=== PATIENT | male | born 1970 | race Hispanic/Latino ===

== ENCOUNTER 2023-02-06 20:01 | Inpatient (IN) | payer BC ==
[~2023-02-06] VITALS: Ht 165.1 cm; Wt 128.4 kg
[2023-02-06] MEDS ORDERED: ONDANSETRON 4MG INJ IVP ONE (20:30)
[2023-02-06] MEDS ORDERED: MORPHINE 2 MG SYG IVP ONE ×2 (20:30→21:00)
[2023-02-06] MEDS ORDERED: 0.9%NACL 1000ML 1,000 ML IV ONE ×2 (20:30→21:00)
[2023-02-06 20:39] LABS: BASOPHILS % (AUTO) 0.7 % (0.0-5.0); EOSINOPHILS % (AUTO) 2.2 % (0.0-8.0); HEMATOCRIT 42.5 % (42-54); LYMPHOCYTES % (AUTO) 31.2 % (21.0-51.0); MEAN CORPUSCULAR HEMOGLOBIN 31.5 pg (27.0-33.0); MEAN CORPUSCULAR HGB CONC 34.4 g/dL (32.0-36.0); MEAN CORPUSCULAR VOLUME 91.6 fL (79-99); MONOCYTES % (AUTO) 7.6 % (3.0-13.0); PLATELET COUNT (AUTO) 220 K/uL (130-400); RED BLOOD CELL COUNT(AUTO) 4.64 MIL/uL (4.50-6.20); RED CELL DISTRIBUTION WIDTH 12.2 % (11.0-15.5); WHITE BLOOD COUNT (AUTO) 7.2 K/uL (4.8-10.8)
[2023-02-06 20:51] LABS: CREATININE 1.1 mg/dL (0.5-1.5); POTASSIUM 3.9 mmol/L (3.5-5.1)
[2023-02-06 20:56] LABS: ALBUMIN 3.4 g/dL (3.5-5.0); TOTAL PROTEIN, SERUM 7.4 g/dL (6.0-8.3)
[2023-02-06 21:22] LABS: APPEARANCE,URINE CLEAR (CLEAR); BILIRUBIN,URINE NEGATIVE (NEGATIVE); COLOR,URINE LIGHT-YELLOW (YELLOW); GLUCOSE, URINE (UA) >=1000 mg/dL (NEGATIVE); KETONES,URINE 10 mg/dL (NEGATIVE); LEUKOCYTE ESTERASE ,URINE NEGATIVE Leu/uL (NEGATIVE); NITRATE,URINE NEGATIVE (NEGATIVE); OCCULT BLOOD,URINE NEGATIVE (NEGATIVE); PH,URINE 5.5 (5.0-8.0); PROTEIN,URINE NEGATIVE (NEGATIVE)
[2023-02-06 21:24] LABS: MUCUS,URINE RARE LPF (None Seen); RBC,URINE 0-1 /HPF (0-1); SQUAMOUS EPITHELIAL CELL,UR RARE /HPF (0-2)
[2023-02-06] MEDS ORDERED: IOHEXOL-350 75 ML VIAL IV ONE (22:08)
[2023-02-06] MEDS ORDERED: ZOSYN 3.375GM +NS 50ML IVPB SCH (23:30)
[2023-02-06] MEDS: 0.9%NACL 50ML IV SCH (23:45)
[2023-02-07] VITALS (7 sets, daily range): BP systolic 97–159; BP diastolic 61–91
[2023-02-07] MEDS ORDERED: LACTULOSE 20 GM/30 ML UDCUP PO PRN
[2023-02-07] MEDS ORDERED: MAG/ALUM/SIMETH 30 ML UDCUP PO PRN
[2023-02-07] MEDS ORDERED: ACETAMINOPHEN 325 MG TAB PO PRN ×2
[2023-02-07] MEDS ORDERED: ONDANSETRON 4MG INJ IV PRN
[2023-02-07] MEDS ORDERED: HYDRALAZINE 20MG/ML VIAL IV PRN
[2023-02-07] MEDS: ZOSYN 3.375GM+NS 50ML 50 ML IVPB SCH ×4 (00:29→20:36)
[2023-02-07] MEDS: 0.9%NACL 1000ML 1,000 ML IV SCH ×3 (00:29→20:40)
[2023-02-07] MEDS: HYDROMORPHONE 1 MG INJ IV PRN ×4 (00:30→20:40)
[2023-02-07 01:57] LABS: CHOLESTEROL 165 mg/dL (<200); HDL CHOLESTEROL 33 mg/dL (29-71); LDL DIRECT 99 mg/dL (0-99); TRIGLYCERIDES 305 mg/dL (30-200)
[2023-02-07] MEDS: HYDROCODONE/ACETAMINOPHEN 5/325 MG TAB PO PRN ×3 (03:11→23:52)
[2023-02-07] MEDS ORDERED: 0.9%NACL 50ML IV SCH (05:00)
[2023-02-07] MEDS ORDERED: ZOSYN 3.375GM+NS 50ML 50 ML IVPB SCH (05:00)
[2023-02-07 05:09] LABS: HEMATOCRIT 40.6 % (42-54); MEAN CORPUSCULAR HEMOGLOBIN 31.3 pg (27.0-33.0); MEAN CORPUSCULAR VOLUME 94.9 fL (79-99); RED BLOOD CELL COUNT(AUTO) 4.28 MIL/uL (4.50-6.20); RED CELL DISTRIBUTION WIDTH 12.2 % (11.0-15.5); WHITE BLOOD COUNT (AUTO) 6.3 K/uL (4.8-10.8)
[2023-02-07 05:11] LABS: CREATININE 0.8 mg/dL (0.5-1.5); MAGNESIUM 1.9 mg/dL (1.80-2.40); POTASSIUM 3.8 mmol/L (3.5-5.1)
[2023-02-07 05:49] LABS: HEMOGLOBIN A1C 7.6 % (4.0-6.0)
[2023-02-07] MEDS: INSULIN HUMULIN R 100 UNIT/ML 3ML SQ SCH ×4 (06:06→20:48)
[2023-02-07] MEDS: 0.9%NACL 50ML IV SCH ×3 (06:25→20:36)
[2023-02-07] MEDS: PANTOPRAZOLE 40 MG/VIAL IVP SCH (08:59)
[2023-02-07] MEDS: ENOXAPARIN SODIUM 40 MG/0.4 ML SYRINGE SQ SCH (08:59)
[2023-02-07] MEDS: LISINOPRIL 10 MG TABLET PO SCH (09:00)
[2023-02-08] MEDS: ZOSYN 3.375GM+NS 50ML 50 ML IVPB SCH ×2 (03:37→13:00)
[2023-02-08] MEDS: 0.9%NACL 50ML IV SCH ×2 (03:37→13:00)
[2023-02-08 04:10] VITALS: BP 128/75
[2023-02-08] MEDS: 0.9%NACL 1000ML 1,000 ML IV SCH ×2 (04:24→16:00)
[2023-02-08 04:38] LABS: BASOPHILS % (AUTO) 0.5 % (0.0-5.0); LYMPHOCYTES % (AUTO) 30.3 % (21.0-51.0); MEAN CORPUSCULAR HEMOGLOBIN 31.6 pg (27.0-33.0); MEAN CORPUSCULAR HGB CONC 33.2 g/dL (32.0-36.0); MEAN CORPUSCULAR VOLUME 95.1 fL (79-99); MONOCYTES % (AUTO) 6.8 % (3.0-13.0); NEUTROPHILS % (AUTO) 59.1 % (40.0-77.0); PLATELET COUNT (AUTO) 182 K/uL (130-400); RED BLOOD CELL COUNT(AUTO) 4.31 MIL/uL (4.50-6.20); RED CELL DISTRIBUTION WIDTH 12.1 % (11.0-15.5); WHITE BLOOD COUNT (AUTO) 6.3 K/uL (4.8-10.8)
[2023-02-08 04:53] LABS: CREATININE 0.8 mg/dL (0.5-1.5); CRP QUANTITATIVE 12.9 mg/L (0.00-9.0); POTASSIUM 3.7 mmol/L (3.5-5.1); TOTAL PROTEIN, SERUM 6.4 g/dL (6.0-8.3)
[2023-02-08] MEDS: INSULIN HUMULIN R 100 UNIT/ML 3ML SQ SCH ×3 (05:44→16:30)
[2023-02-08] MEDS: PANTOPRAZOLE 40 MG/VIAL IVP SCH (08:55)
[2023-02-08] MEDS: LISINOPRIL 10 MG TABLET PO SCH (08:55)
[2023-02-08] MEDS: ENOXAPARIN SODIUM 40 MG/0.4 ML SYRINGE SQ SCH (08:56)
[2023-02-08 11:00] VITALS: BP 143/79
[2023-02-08 16:00] VITALS: BP 131/80
== END 2023-02-08 18:55 | disposition home or self-care (01) | DRG 392 ==
LOC: EDH 20:01 → EDHIP 23:32 → 3BH 02-07 00:40
PROVIDERS: ADMIT Internal Medicine; ATTEND Internal Medicine
DX: K57.32 Diverticulitis of large intestine without perforation or abscess without bleeding (principal); Z68.42 Body mass index [BMI] 45.0-49.9, adult; E87.1 Hypo-osmolality and hyponatremia; I10 Essential (primary) hypertension; E11.65 Type 2 diabetes mellitus with hyperglycemia; E66.01 Morbid (severe) obesity due to excess calories; E78.1 Pure hyperglyceridemia; F17.210 Nicotine dependence, cigarettes, uncomplicated; K59.00 Constipation, unspecified; Z85.828 Personal history of other malignant neoplasm of skin; Z83.3 Family history of diabetes mellitus; Z82.49 Family history of ischemic heart disease and other diseases of the circulatory system; Z79.4 Long term (current) use of insulin
CPT/HCPCS: 36415; 71045; 74177; 76705; 78227; 80048; 80053; 80061; 81001; 82948; 83036; 83605; 83690; 83735; 84484; 85025; 85027; 86140; 87040; 87077; 87186; 93005; A9537; C9113; G0378; J1170; J1650; J2405; J2543; Q9967